=== PATIENT | female | born 1960 | race African-American/Black ===

== ENCOUNTER 2016-12-07 20:41 | Emergency (ER) | payer OTHER ==
--- NOTE | ~2016-12-07 | EKG ---
PATIENT: KIRK SINCLAIR UNIT #: [id number] Ventricular Rate: 94 BPM Atrial Rate: 94 BPM P-R Interval: 130 ms QRS Duration: 76 ms Q-T Interval: 368 ms QTC Calculation(Bezet): 460 ms P [place]: 74 degrees Calculated R [place]: 17 degrees Calculated T [place]: 42 degrees Diagnosis Line: Normal sinus rhythm Diagnosis Line: Nonspecific ST and T wave abnormality Diagnosis Line: Abnormal ECG Diagnosis Line: No previous ECGs available Diagnosis Line: Confirmed by ANDRIA KUMAR MD ([id number]) on Diagnosis Line: 12/10/2016 9:36:52 PM INTERPRETING MD: STACY BATEMAN
--- NOTE | ~2016-12-07 | CR72 ---
[facility] A Service of [facility] & [facility] RADIOLOGY TEXT RESULTS PATIENT: KIRK SINCLAIR LOCATION: [facility] : 62 UNIT #: [id number] AGE: [address]: Ruddy Uriarte MD SEX: F ORDER DR: [id number] [facility] [address] [place], [place] [address] [id number] MR#: [id number] Acc #: [id number] NAME: KIRK SINCLAIR : 1960 SEX: F STUDY DATE/TIME: 12/07/2016 21:35 UNIT: [facility] ROOM: STUDY DESCRIPTION: CR Chest Single View Portable Attending Physician: Vinh Uriarte M.D. Ordering Physician: Blaise Ibrahim M.D. Primary Care Physician: Bandar Cleary MEDICAL IMAGING REPORT This report is preliminary unless electronic signature is present EXAM AP portable chest DATE 12/07/2016 at 21:35 HISTORY Dyspnea for 2 days. COMPARISON PA and lateral 01/18/2013 FINDINGS Study is mildly attenuated by body habitus. No acute airspace disease. Normal heart size. No pleural effusion or pneumothorax. IMPRESSION No acute cardiopulmonary findings. Dictated by... Keshia Woods M.D. THIS IS AN ELECTRONICALLY VERIFIED REPORT Keshia Woods M.D. at 12/11/2016 8:47 AM YURI/phan TD: 12/08/2016 05:35 JOB #: [id number] CC: Ed Doc Chris Ibrahim MEDICAL IMAGING REPORT Page 1 of 1 COPY
[~2016-12-07 20:41] MED LIST: ASPIRIN PO; LIPITOR PO; LISINOPRIL PO; LORATADINE PO; MUCINEX DM1 TAB.SR . PO; PREMARIN PO; TOPROL XL PO
[2016-12-07 21:33] LABS: BASOPHIL# 0.1 X10e3 (0-0.3); BASOPHIL% 0.8 % (0-2.5); EOSINOPHIL# 0.1 X10e3 (0-0.7); EOSINOPHIL% 0.7 % (0.0-7.0); HEMATOCRIT 41.6 % (35.0-45.0); HEMOGLOBIN 13.9 gm/dL (12.0-16.0); LYMPHOCYTE# 2.5 X10e3 (1.0-3.5); LYMPHOCYTE% 23.1 % (17.0-45.0); MEAN CELL VOLUME 91.2 FL (83-96); MEAN CORPUSCULAR HEMOGLOBIN 30.4 PG (28-34); MEAN CORPUSCULAR HGB CONC 33.3 g/dL (30-36); MEAN PLATELET VOLUME 7.2 FL (6.5-11.5); MONOCYTE# 0.6 X10e3 (0-1.0); MONOCYTE% 5.7 % (3.0-12.0); NEUTROPHIL# 7.5 X10e3 (1.5-7.1); NEUTROPHIL% 69.7 % (40-75); PLATELET COUNT 241 X10e3 (140-420); RED BLOOD COUNT 4.56 X10e (3.90-5.30); RED CELL DISTRIBUTION WIDTH 13.9 % (11.0-15.5); WHITE BLOOD COUNT 10.7 X10e3 (4.0-10.5)
[2016-12-07 21:35] LABS: DIFF IND NO
[2016-12-07 21:42] LABS: POC - CKMB 7.1 ng/mL (0.0-7.9); POC - TROPONIN <0.05 ng/mL (<=0.05)
[2016-12-07 21:57] LABS: BUN/CREATININE RATIO 17.77; CALCIUM SERUM 9.3 mg/dL (8.4-10.2); CREATININE SERUM 0.9 mg/dL (0.6-1.4); GLOM FILT RATE Estimated 84.1 mL/min (>60); POTASSIUM 3.5 mmol/L (3.5-5.1)
== END 2016-12-07 23:44 | disposition home or self-care (01) ==
LOC: CED 20:41
PROVIDERS: Emergency Medicine
DX: J45.901 Unspecified asthma with (acute) exacerbation (principal); I10 Essential (primary) hypertension; Z90.710 Acquired absence of both cervix and uterus; Z87.891 Personal history of nicotine dependence; Z88.8 Allergy status to other drugs, medicaments and biological substances; Z79.899 Other long term (current) drug therapy
CPT/HCPCS: 36415; 71010; 80048; 82553; 83880; 84484; 85025; 93005; 94644; 96374; 99283; J2930